=== PATIENT | female | born 1970 | race Caucasian/White ===

== ENCOUNTER 2018-04-07 08:38 | Emergency (ER) | payer OTHER ==
[~2018-04-07] VITALS: Ht 165.1 cm; Wt 79.4 kg
[2018-04-07 08:53] VITALS: BP_SYST 124
--- NOTE | 2018-04-07 08:55 | NUR ---
Patient to ER bed 7 to gown for evaluation. Side rails up. PEDRITO Archer assigned as primary nurse.
--- NOTE | 2018-04-07 09:15 | NUR ---
ER Dr. Martinez at bedside examining patient.
--- NOTE | 2018-04-07 09:16 | NUR ---
Pt comnplaining of non-productive cough x 2 days associated with a sore throat. Denies SOB, nausea, vomiting or other pain. PT a/o x 4, speaks [place] and is cooperative.
[2018-04-07] MEDS ORDERED: IPRATROPIUM/ALBUTEROL SULFATE 3 ML AMPUL.NEB (DUONEB) ONE (09:27)
[2018-04-07] MEDS ORDERED: IBUPROFEN 800 MG TABLET PO ONE (09:30)
[2018-04-07] MEDS ORDERED: guaiFENesin/DEXTROMETHORPHAN 10 ML UDC PO ONE (09:45)
[2018-04-07] MEDS ORDERED: ALBUTEROL SULFATE 0.083% 2.5 MG/3 ML VIAL.NEB INH ONE (10:00)
--- NOTE | 2018-04-07 10:26 | NUR ---
Patient given written and verbal discharge instructions and verbalizes understanding. ER MD discussed with patient the results and treatment provided. Patient in stable condition. ID arm band removed. Rx of Motrin and Promethazine with codeine given. Patient educated on pain management and to follow up with PMD. Pain Scale 08/30, Dr. Hodgson made aware of pain scale and pain management protocol in place. Opportunity for questions provided and answered. Medication side effect fact sheet provided.
[2018-04-07 10:31] VITALS: BP_SYST 122
== END 2018-04-07 10:29 | disposition home or self-care (01) ==
LOC: SED 08:38
DX: R05 Cough (principal); R06.02 Shortness of breath; R09.81 Nasal congestion
CPT/HCPCS: 71045; 94640; 99283; J7620